=== PATIENT | male | born 1970 | race Caucasian/White ===

== ENCOUNTER 2023-08-11 05:30 | Day surgery (SDC) | payer BC ==
[~2023-08-11 05:30] MED LIST: Sodium Chloride 0.9% 10 ML Syringe FLUSH PRN; Sodium Chloride 0.9% 10 ML Syringe FLUSH SCH
[2023-08-11] MEDS: Lactated Ringers 1,000 ML IV SCH (05:50)
[2023-08-11] MEDS ORDERED: Ondansetron 4 MG/2 ML SDV IVPUSH PRN (06:25)
[2023-08-11] MEDS ORDERED: HYDROmorphone 0.5 MG/0.5 ML Syringe IVPUSH PRN (06:25)
[2023-08-11] MEDS ORDERED: fentaNYL 100 MCG/2 ML SDV IVPUSH PRN (06:25)
[2023-08-11] MEDS ORDERED: Midazolam 1 MG/ML 2 ML SDV ONE (06:28)
[2023-08-11] MEDS ORDERED: ceFAZolin 2 GM Vial ONE (06:29)
[2023-08-11] MEDS ORDERED: Propofol 200 MG/20 ML SDV ONE ×5 (06:29→08:25)
[2023-08-11] MEDS ORDERED: fentaNYL 100 MCG/2 ML SDV ONE (06:29)
[2023-08-11] MEDS ORDERED: Ketorolac 15 MG/ML SDV ONE (06:33)
[2023-08-11] MEDS ORDERED: Lactated Ringers 1,000 ML ONE (07:42)
[2023-08-11] MEDS: Vancomycin 1 GM SDV ONE (08:13)
[2023-08-11] MEDS: Morphine 8 MG, EPINEPHrine 0.3 MG, Cefuroxime 750 MG, Ketorolac 30 MG, Sodium Chloride ... PRN (08:13)
[2023-08-11] MEDS: Tranexamic Acid 1,000 MG/10 ML Vial ONE (08:13)
[2023-08-11] MEDS: oxyCODONE 5 MG Tab PO PRN (10:00)
== END 2023-08-11 13:25 | disposition home or self-care (01) ==
LOC: JD.SDS 05:30
PROVIDERS: ATTEND Orthopaedic Surgery
DX: M16.11 Unilateral primary osteoarthritis, right hip (principal); I10 Essential (primary) hypertension; E11.9 Type 2 diabetes mellitus without complications; K21.9 Gastro-esophageal reflux disease without esophagitis; G89.29 Other chronic pain; F17.290 Nicotine dependence, other tobacco product, uncomplicated; Z79.899 Other long term (current) drug therapy
CPT/HCPCS: 0055T; 27130; 36415; 73501; 82947; 86850; 86900; 86901; 97110; 97161; A9270; C1713; C1776; J0171; J0690; J0697; J1885; J2250; J2270; J2704; J3010; J3370; J7120; 01214; J3490